=== PATIENT | male | born 1940 | race Caucasian/White ===

== ENCOUNTER 2017-09-14 15:37 | Emergency (ER) | payer MEDICARE ==
--- NOTE | 2017-09-14 16:10 | RAD ---
CHEST PA AND LATERAL: History: 77-year-old male with history of cough and wheezing, worsening. Comparison: 11-09-12 FINDINGS: Left ICD is noted. Atherosclerosis of the aorta with moderate ectasia. Heart size is normal. The lung s are clear. IMPRESSION: No acute intrathoracic disease. Left ICD. Atherosclerosis of the aorta with ectasia. POS: [facility]
[2017-09-14] MEDS ORDERED: predniSONE 20 MG TAB ONE (16:21)
== END 2017-09-14 16:48 | disposition home or self-care (01) ==
LOC: SCSER 15:37
DX: J45.901 Unspecified asthma with (acute) exacerbation (principal); K21.9 Gastro-esophageal reflux disease without esophagitis; F32.9 Major depressive disorder, single episode, unspecified
CPT/HCPCS: 71020; 94640; 94760; J7506; J7620

== ENCOUNTER 2018-09-16 03:54 | Inpatient (IN) | payer OTHER, MEDICARE ==
[2018-09-16 05:13] LABS: ALT (SGPT) 30 U/L (8-55); AST (SGOT) 34 U/L (5-34); Albumin 4.3 g/dL (3.4-4.8); Alkaline Phosphatase 72 U/L (40-150); Anion Gap 17 mmol/L (10-20); BUN (Urea Nitrogen) 23 mg/dL (8.4-25.7); Bilirubin, Total 0.5 mg/dL (0.2-1.2); Calc. Creatinine Clearance 0 mL/min (70-130); Calcium 9.7 mg/dL (7.8-10.44); Carbon Dioxide 24 mmol/L (23-31); Chloride 102 mmol/L (98-107); Estimated GFR-MDRD 86; Glucose 148 mg/dL (83-110); Potassium 4.5 mmol/L (3.5-5.1); Protein, Total 7.3 g/dL (5.8-8.1); Sodium 138 mmol/L (136-145)
[2018-09-16 05:16] LABS: #Basophils 0.1 thou/uL (0.0-0.2); #Eosinphils 0.3 thou/uL (0.0-0.7); #Lymphocytes 1.4 thou/uL (1.20-3.40); #Monocytes 0.8 thou/uL (0.11-0.59); #Neutrophils 5.3 thou/uL (1.40-6.50); %Basophils 1.5 % (0.0-1.0); %Eosinophils 3.8 % (0.0-10.0); %Lymphocytes 18.1 % (21.0-51.0); %Monocytes 9.8 % (0.0-10.0); %Neutrophils 66.8 % (42.0-75.0); Hemoglobin 14.1 g/dL (14.0-18.0); Mean Corpuscular HGB CONC 34.1 g/dL (32.0-36.0); Mean Corpuscular Hemoglobin 31.1 pg (27.0-31.0); Mean Corpuscular Volume 91.4 fL (78.0-98.0); Mean Platelet Volume 8.5 fL (7.4-10.4); PLT Morphology Comment Appears Decreased; Platelet Count 113 thou/uL (130-400); RBC Morphology Normal; Red Blood Cell (RBC) Count 4.54 mill/uL (4.70-6.10)
[2018-09-16] MEDS ORDERED: Furosemide 40 MG/4 ML VIAL ONE (05:39)
[2018-09-16] MEDS ORDERED: Furosemide 20 MG/2 ML VIAL ONE (05:39)
[2018-09-16] MEDS ORDERED: Nitroglycerin 2% Ointment 1 INCH/1 GM Packet ONE (05:39)
[2018-09-16 06:13] LABS: Bilirubin Negative (Negative); Blood, Urine Negative (Negative); Clarity CLEAR (Clear); Glucose, Urine (Dipstick) Negative (Negative); Leukocyte Negative (Negative); Nitrite Negative (Negative); Protein, Urine (Dipstick) Negative (Neg-Trace); Specific Gravity, Urine 1.007 (1.002-1.036)
--- NOTE | 2018-09-16 08:46 | RAD ---
CHEST 1 VIEW: COMPARISON: 11/09/2012. HISTORY: Chest pain and dizziness. FINDINGS: Left-sided transvenous pacemaker has lead position over the region of the right atrium and right vent ricle. Heart is enlarged. There is atherosclerosis and elongation of the aorta. Pulmonary vessels are slightly prominent. Costophrenic angles are clear. No masses or consolidation. No pneumothorax or osseous abnormalities. IMPRESSION: 1. Atherosclerosis. 2. Cardiomegaly with pulmonary vascular prominence. Correlate for volume overload. POS: [facility]
[2018-09-16] MEDS ORDERED: Famotidine 20 MG TAB PO SCH ×2 (09:30→10:00)
--- NOTE | 2018-09-16 10:03 | CT ---
CT OF HEAD NONCONTRAST: Indication: Dizziness. FINDINGS: There is a normal sized ventricular system. Mild white matter hypodensities indicate chronic ischemic disease. No intracranial hemorrhage, mass effect or midline shift. The calvarium is intact. No acute fluid level in the paranasal sinuses. IMPRESSION: No acute intracranial hemorrhage or mass effect. POS: [facility]
[2018-09-16 10:05] LABS: Troponin I Less than 0.010 ng/mL (< 0.028)
--- NOTE | 2018-09-16 11:07 | HP ---
CHIEF COMPLAINTS: Episode of dizziness associated with some double vision and feeling cold and clammy. HISTORY OF PRESENT ILLNESS: The patient is an 78-year-old male, who is admitted to hospital after he developed sudden onset of dizziness with a feeling of being cold and clammy according to his , who was present during this episode. His right eye was deviated to the right and he noticed the double vision. During this happened, he felt hot. Before, he felt cold. His blood pressure was checked by his and it was 179/92. He did not have any headache. He did not have any chest pain. He did not have any shortness of breath. He noticed some wheezing daily in the last several days. 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 Summers. He has daily dry cough. His surrogate decision maker is his , Cindy, and his primary care physician is . He had pacemaker checked recently, approximately 3 to 4 weeks ago and everything came out right. He is back to his baseline and the episode lasted approximately 45 to 60 minutes. He was brought to the emergency room for further evaluation. He did not notice any slow heart beat or fast palpitations during the episode. He noticed increased swelling in his lower extremities, but he admits that they ate in different places and they were not really watching his low-salt diet. He has some peripheral edema on daily basis. PAST MEDICAL HISTORY: 1. Asthma. 2. Hypertension. 3. Sleep apnea. 4. GERD. PAST SURGICAL HISTORY: Tonsillectomy. SOCIAL HISTORY: He never smoked. Does not use any illicit drugs. He does not drink alcohol. FAMILY HISTORY: Father had prostate cancer and he passed at the age of 93, and the mother was 77 when she passed of colon cancer and CVA. MEDICATIONS: Please refer to the list. ALLERGIES: NONE. REVIEW OF SYSTEMS: All 14 systems were reviewed and only positive for those, which are mentioned in the HPI. The rest are negative. PHYSICAL EXAMINATION: GENERAL: He is not in any distress during my visit. He is resting comfortably on the stretcher. VITAL SIGNS: He is afebrile. Pulse is 65. HEENT: His head is atraumatic and normocephalic. Eyes, pupils somewhat dilated, but symmetrical, size is per approximately 4 mm and respond to light properly. Extraocular movements within normal limits, both eyes. Conjunctivae pinkish. Oral mucosa is moist. NECK: Supple. No lymphadenopathy. Thyroid is not palpable. CHEST: Left upper chest, pacemaker is placed. No skin changes over the pacemaker. LUNGS: Clear with just few rales at both bases. HEART: S1 and S2, somewhat distant. No S3. No S4. ABDOMEN: Obese, nontender, nondistended. Bowel sounds are present. No organomegaly. EXTREMITIES: 3+ peripheral edema similar bilaterally on both lower extremities. NEUROLOGICAL: He is alert and oriented x4. There is no any sensory or motor deficits. The exam is nonfocal. His cerebral function shows some dysmetria in the left [id number] testing. The right side is working fine. LABORATORY DATA: Showed white count of 8.7, hemoglobin 14.1, hematocrit 41.5, and platelet count is 113. Chemistry, normal electrolytes. Glucose 148. The rest of chemistry within normal limits. Troponin I is less than 0.010. BNP 18.4. Urinalysis within normal limits. EKG showed dual-chamber pacemaker, 65 beats per minute. Chest x-ray showed heart enlargement with increased vascular pulmonary congestion, fluid overload. IMPRESSION: 1. Most likely basilar transient ischemic attack. 2. Peripheral edema. 3. Volume overload. 4. History of asthma. 5. Thrombocytopenia. 6. Hypertension, uncontrolled. 7. Sleep apnea. PLAN: Full admission. Condition is fair. Activities, bedrest and bathroom privileges. IV Hep-Lock. Diet, heart-healthy diet. Lasix 40 q.12 for diuresis, IV push. Echocardiogram, transthoracic. CT of the brain without contrast. Depends whether this is going to require additional MRI imaging. We will continue his home medications. He received aspirin and Lasix in the emergency room. He put out approximately 2000 mL of urine so far. He is DNAR. Because of his thrombocytopenia, we are him Lovenox or SCDs since he has quite significant peripheral edema. We will have Neurology consulted, and clinically at this point, he is back to his baseline, so is just a matter of diuresing him and getting more testing on his primary problem. Job ID: [id number]
[2018-09-16 11:39] VITALS: BMI 36.5
[2018-09-16 12:09] LABS: INR-International Normal Ratio 1.1; Prothrombin Time 13.9 SEC (12.0-14.7)
[2018-09-16 12:10] LABS: Hemoglobin A1c 6.9 % (4.0-6.0)
--- NOTE | 2018-09-16 12:29 | ULT ---
CAROTID ULTRASOUND WITH EVERETT SCALE AND DOPPLER DUPLEX COLOR FLOW IMAGING SPECTRAL ANALYSIS PERFORMED: CLINICAL INDICATION: TIA. FINDINGS: There is mild scattered atherosclerotic calcification of the carotid arteries. PEAK SYSTOLIC VELOCITY (CM/S): Right CCA 64 Left CCA 72 Right ICA 59 Left ICA 75 There is antegrade flow within the visualized bilateral vertebral arteries. IMPRESSION: 1. No hemodynamically significant stenosis of the right internal carotid artery. 2. No hemodynamically significant stenosis of the left internal carotid artery. POS: [facility]
[2018-09-16] MEDS: Furosemide 40 MG/4 ML VIAL SLOW IVP SCH (14:53)
[2018-09-16] MEDS: Potassium Chloride 20 MEQ TAB PO SCH (17:07)
[2018-09-16] MEDS: Famotidine 20 MG TAB PO SCH (21:52)
[2018-09-16] MEDS ORDERED: Magnesium Oxide 400 MG TAB PO PRN (22:39)
--- NOTE | 2018-09-17 00:11 | CON ---
DATE OF CONSULTATION: 09/16/2018 CONSULTING PHYSICIAN: Hospitalist Services. IMPRESSION: 1. Basilar transient ischemic attack with transient ataxia and double vision. 2. Hypertension. PLAN: 1. Aspirin 81 mg per day. 2. Low-dose statin. 3. Follow up with Cardiology. HISTORY OF PRESENT ILLNESS: Mr. Mojica is an 78-year-old gentleman with a past history of hypertension. He got up at 2 o'clock in the morning and noted that he was seeing double. There was no associated eye pain, nausea, or vertigo. He noted that he was walking in a very unstable manner. His symptoms lasted about an hour and fortunately cleared up. He did not have any nausea, difficulty speaking or swallowing. He has never had anything like this in the past. He had a CT scan of the brain, which showed some small-vessel ischemic changes. His carotid ultrasound did not show any extracranial stenosis. His echocardiogram shows a 50% to 55% ejection fraction. He was thought to be in a degree of heart failure and has been diuresed also. He reports a history of tingling and burning feet, but has not been diagnosed as a diabetic. PAST HISTORY: Hypertension. SOCIAL HISTORY: No tobacco or alcohol use. and lives at home with his . FAMILY HISTORY: Noncontributory. MEDICATIONS: Medication list was reviewed. ALLERGIES: NONE REPORTED. REVIEW OF SYSTEMS: No complaints of headache, chest pain, shortness of breath, abdominal pain, cramps, or diarrhea. PHYSICAL EXAMINATION: GENERAL: He is a large, somewhat overweight elderly gentleman, in no acute distress. VITAL SIGNS: Blood pressure 169/79, pulse 61, respirations 18, and temperature 98.0. HEENT: Pupils are equal and reactive. Conjunctivae clear. Oropharynx clear. NECK: Supple. No lymphadenopathy. EXTREMITIES: Some mild edema, but no cyanosis. NEUROLOGIC: He is alert and appropriate. His speech is fluent and clear. Cranial nerves 2 through 12 are intact. Motor exam shows symmetric strength without fix or drift. Sensation is intact to light touch bilaterally with diminished in the feet. Gait is reasonably steady, but a bit wide-based. No tremor or other abnormal movements were seen. LABORATORY STUDIES: Glucose 148 with the hemoglobin A1c of 6.9. CBC and coags were normal. EKG shows sinus rhythm. SUMMARY: Elderly man with transient neurologic event suggestive of a basilar TIA. I agree with your current management. He may require treatment of his blood sugar as well. He appears to be stable for discharge home. Job ID: [id number]
[2018-09-17 05:06] LABS: Anion Gap 12 mmol/L (10-20); BUN (Urea Nitrogen) 19 mg/dL (8.4-25.7); Calc. Creatinine Clearance 128 mL/min (70-130); Calcium 9.4 mg/dL (7.8-10.44); Carbon Dioxide 32 mmol/L (23-31); Chloride 100 mmol/L (98-107); Estimated GFR-MDRD 90; Glucose 160 mg/dL (83-110); Magnesium 2.2 mg/dL (1.6-2.6); Potassium 4.1 mmol/L (3.5-5.1); Sodium 140 mmol/L (136-145)
[2018-09-17] MEDS: Furosemide 40 MG/4 ML VIAL SLOW IVP SCH ×2 (06:10→13:31)
[2018-09-17] MEDS: Aspirin 81 mg Enteric Coated Tablet PO SCH (09:07)
[2018-09-17] MEDS: Potassium Chloride 20 MEQ TAB PO SCH ×2 (09:07→17:05)
[2018-09-17] MEDS: Famotidine 20 MG TAB PO SCH ×2 (09:07→20:32)
--- NOTE | 2018-09-17 14:14 | PDOC.PN ---
- Subjective Encounter Start Date: 09/17/18 Encounter Start Time: 14:13 Subjective: Notes occasional dyspnea, ongoing swelling bilateral lower extremities, but -: this is generally improving relative to admission - Objective Resuscitation Status - Order Detail: 09/16/18 08:31 Resuscitation Status Routine Resuscitation Status: DNAR: NO Resuscitation Discussed with: discussed with the patient and his Vital Signs & Weight: Vital Signs (12 hours) Temp Pulse Resp BP Pulse Ox 09/17/18 11:23 98.6 F 91 18 137/69 92 L 09/17/18 09:07 91 L 09/17/18 07:52 98.5 F 83 18 141/75 H 91 L 09/17/18 04:00 99.2 F 65 16 155/70 H 92 L Weight Weight 277 lb I&O: 09/16/18 09/17/18 09/18/18 06:59 06:59 06:59 Intake Total 1197 360 Output Total 1910 1400 Balance -263 1040 Result Diagrams: 09/16/18 04:20 09/17/18 04:31 Phys Exam - Physical Examination Speaking in short sentences after ambulating from bathroom to bed HEENT: PERRLA, oral pharynx no lesions Neck: full ROM Occasional wheeze Cardiovascular: RRR Gastrointestinal: soft, non-tender Musculoskeletal: edema present BLE 2plus Neurological: non-focal, moves all 4 limbs Psychiatric: normal affect, A&O x 3 Skin: no rash Dx/Plan (1) TIA involving basilar artery Code(s): G45.0 - VERTEBRO-BASILAR ARTERY SYNDROME Status: Acute Comment: Resolved (2) HTN (hypertension) Code(s): I10 - ESSENTIAL (PRIMARY) HYPERTENSION Status: Acute (3) PAUL (obstructive sleep apnea) Code(s): G47.33 - OBSTRUCTIVE SLEEP APNEA (ADULT) (PEDIATRIC) Status: Acute (4) GERD (gastroesophageal reflux disease) Code(s): K21.9 - GASTRO-ESOPHAGEAL REFLUX DISEASE WITHOUT ESOPHAGITIS Status: Acute (5) Asthma Code(s): J45.909 - UNSPECIFIED ASTHMA, UNCOMPLICATED Status: Acute (6) Diastolic CHF Code(s): I50.30 - UNSPECIFIED DIASTOLIC (CONGESTIVE) HEART FAILURE Status: Acute (7) Peripheral edema Code(s): R60.9 - EDEMA, UNSPECIFIED Status: Acute - Plan cont current plan of care, plan discussed w/ family, out of bed/ambulate * Echo reviewed, suspect diastolic CHF - continue diuresis, check AM lab, apply thigh high EMMANUEL hose * Neuro - ASA, statin * Basilar TIA - no further symptoms * Pacemaker interrogation if possible to rule out intermittant atrial tachyarrhythmias * DVT prophylaxis - lovenox * Endo - follow up HgA1c.
[2018-09-17] MEDS ORDERED: Mag-Al 1200 mg/1200 mg/30 ML UDCUP PO PRN (16:41)
[2018-09-17] MEDS ORDERED: hydrALAZINE 20 MG/ML VIAL SLOW IVP PRN (21:57)
[2018-09-18 05:23] LABS: #Basophils 0.1 thou/uL (0.0-0.2); #Eosinphils 0.3 thou/uL (0.0-0.7); #Lymphocytes 1.4 thou/uL (1.20-3.40); #Monocytes 0.8 thou/uL (0.11-0.59); #Neutrophils 4.6 thou/uL (1.40-6.50); %Eosinophils 3.8 % (0.0-10.0); %Lymphocytes 19.9 % (21.0-51.0); %Monocytes 11.4 % (0.0-10.0); %Neutrophils 63.9 % (42.0-75.0); Hemoglobin 13.7 g/dL (14.0-18.0); Mean Corpuscular HGB CONC 33.9 g/dL (32.0-36.0); Mean Corpuscular Hemoglobin 30.9 pg (27.0-31.0); Mean Corpuscular Volume 91.4 fL (78.0-98.0); Mean Platelet Volume 8.1 fL (7.4-10.4); Platelet Count 142 thou/uL (130-400); RBC Distribution Width 12.9 % (11.5-14.5); Red Blood Cell (RBC) Count 4.44 mill/uL (4.70-6.10); White Blood Cell (WBC) Count 7.2 thou/uL (4.8-10.8)
[2018-09-18] MEDS: Furosemide 40 MG/4 ML VIAL SLOW IVP SCH ×2 (05:24→14:12)
[2018-09-18 05:37] LABS: Anion Gap 14 mmol/L (10-20); BUN (Urea Nitrogen) 17 mg/dL (8.4-25.7); Calc. Creatinine Clearance 141 mL/min (70-130); Calcium 9.4 mg/dL (7.8-10.44); Carbon Dioxide 27 mmol/L (23-31); Chloride 101 mmol/L (98-107); Estimated GFR-MDRD Greater than 90; Glucose 149 mg/dL (83-110); Magnesium 2.3 mg/dL (1.6-2.6); Potassium 3.8 mmol/L (3.5-5.1); Sodium 138 mmol/L (136-145)
[2018-09-18] MEDS ORDERED: Enoxaparin Sodium 40 MG/0.4 ML SYRINGE SC SCH (09:00)
[2018-09-18] MEDS: Aspirin 81 mg Enteric Coated Tablet PO SCH (09:28)
[2018-09-18] MEDS: Potassium Chloride 20 MEQ TAB PO SCH (09:28)
[2018-09-18] MEDS: Famotidine 20 MG TAB PO SCH (09:28)
[2018-09-18 11:49] VITALS: BP 161/82; TEMP 98.1
--- NOTE | 2018-09-18 16:58 | EKG ---
Test Reason : Blood Pressure : / mmHG Vent. Rate : 065 BPM Atrial Rate : 065 BPM P-R Int : 118 ms QRS Dur : 186 ms QT Int : 472 ms P-R-T Axes : 000 -74 097 degrees QTc Int : 490 ms AV sequential or dual chamber electronic pacemaker Confirmed by HALEY FERRARO ([id number]), supervising editor trailer EMILIANA JOHNSON ([id number]) on 09/18/2018 4:58:12 PM Referred By: Confirmed By:HALEY FERRARO
--- NOTE | 2018-09-19 11:09 | DIS ---
DATE OF ADMISSION: 09/16/2018 DATE OF DISCHARGE: 09/18/2018 PRIMARY CARE PHYSICIAN: Guanakito Martinez MD ELECTROPLATING WORKER: Romain Maurer MD CHIEF COMPLAINT/REASON FOR ADMISSION: Episode of dizziness associated with double vision, as well as feeling cold and clammy. Additional complaint noted increasing lower extremity edema. ADMISSION DIAGNOSIS: Transient ischemic attack, likely involving the basilar artery. DISCHARGE DIAGNOSES: 1. Transient ischemic attack, involving basilar artery, resolved. 2. Volume overloads as peripheral edema, possibly secondary to nonsteroidal anti-inflammatory medication. 3. Diastolic congestive heart failure, decompensated. 4. History of reactive airway disease/asthma, presently with upper respiratory symptoms. 5. Hypertension, suboptimally controlled. 6. Obstructive sleep apnea, on home CPAP. 7. Gastroesophageal reflux disease. 8. Prediabetes, with goal of dietary intervention/weight loss. STUDIES/PROCEDURES: 2D echocardiogram on 09/16/2018, ejection fraction 55%. Normal size left atrium. Mild concentric left ventricular hypertrophy. Left ventricular size is normal, aortic valve leaflet somewhat thickened, mild tricuspid regurgitation. Pacer wire visualized in the right ventricle. No thrombus noted in the visualized cardiac chamber. Carotid Doppler studies on 09/16/2018. No hemodynamically significant stenosis, left or right internal carotid artery. CT of brain, noncontrast, no acute intracranial hemorrhage or mass effect. CONSULTS DURING HOSPITAL STAY: Neurology, Ricky Malave MD, with recommendation for aspirin 81 mg per day, low-dose statin, outpatient Cardiology followup. HOSPITAL COURSE: Mr. Mojica is an 78-year-old gentleman with medical history of essential hypertension, reactive airway disease/asthma, obstructive sleep apnea, gastroesophageal reflux disease, presenting to the hospital after developing sudden onset of dizziness with a feeling of being cold and clammy. He had noted double vision. Blood pressure noted at home was elevated. No significant headache or chest discomfort. Recent pacemaker check in the Cardiology office showed no abnormalities. Approximately 45 to 60 minutes following onset of symptoms, symptoms had resolved. Additionally, he endorsed worsening edema in the lower extremities, dietary indiscretion with higher salt intake. Neurologically, started on aspirin and statin regimen. Previous intolerance to statin, we will pursue a trial of pravastatin. From a neurologic standpoint, clear for transition to home. From a Cardiology standpoint, found to have an evidence of diastolic congestive heart failure, though preserved ejection fraction. He has been using nonsteroidal medications at home for his arthritis. We discussed discontinuation of Naproxen, as a possible contributor to lower extremity edema. He was diuresed with IV Lasix, with interval improvement, both in pedal edema and with exertional dyspnea. He will be maintained on the diuretic regimen at home with Lasix 40 mg p.o. once daily. Additionally, the patient's family requested transition away from losartan due to the recent recall of this medication, to a different drug on the same cost. I have provided a prescription for valsartan 160 mg p.o. daily. Additionally, I have provided a prescription for potassium supplementation 20 mEq p.o. once daily, due to initiation of Lasix. I provided a prescription for basic metabolic panel on 09/23/2018 to follow up his potassium as well his blood sugar. Hemoglobin A1c was drawn as well during hospitalization. This was found to be 6.9%. Dietary intervention/weight loss recommended. Diabetes medication was not initiated during the hospital stay, but would encourage the patient to continue to follow up as on outpatient as this may need to be revised once his acute medical illness has cleared. He is also endorsed upper respiratory infection during this time frame. His lung castillo are clear on exam, and chest x-ray was negative for evidence of infiltrate or effusion. EMMANUEL hose was applied also assisted with control of lower extremity edema and increase the patient's comfort. He will continue this practise at home. He had been taking the nonsteroidal medications due to pain in his feet. We discussed upper titration of Cymbalta as an alternative route for a long-term pain control. He requested a [facility] 90 mg [facility] He wanted to finish up his current prescription at 60 mg prior to titration. We also discussed cessation of nonsteroidal medications. If pain is severe, he is able to use his home tramadol on an intermittent basis. He demonstrated understanding. PHYSICAL EXAMINATION: GENERAL: On day of discharge, he is awake and alert. He is oriented to person, place, and time. HEENT: Eyes are without conjunctival injection. No scleral icterus. Oropharynx is clear without erythema or exudate. NECK: Supple with full range of motion. HEART: Regular rate and rhythm without distinct murmur, rub, or gallop. LUNGS: Clear bilaterally. ABDOMEN: Soft and nontender. EXTREMITIES: He has edema present bilaterally, 1+, improved from my exam yesterday. Medications discussed with him and his , questions answered. DIET: No added sugar/no added salt, heart healthy. ACTIVITY: As tolerated, ambulation encouraged. FOLLOWUP APPOINTMENTS: Lab draw; basic metabolic panel on 09/23/2018 was requested to send to Dr. Martinez. Follow up with Dr. Martinez on 09/24/2018 at 9:45 a.m. Follow up with Dr. Maurer on 10/05/2018 at 2:45 p.m. MEDICATIONS: New medications included: 1. Lasix 40 mg p.o. once daily. 2. Potassium chloride 20 mEq p.o. daily. 3. Pravastatin 40 mg p.o. at bedtime. 4. Valsartan 160 mg p.o. daily. Medications discontinued: 1. Naproxen. 2. Losartan. Medications to continue: 1. Aspirin 81 mg p.o. daily. 2. Albuterol (Proventil HFA) 1 puff q.4 hours p.r.n. shortness of breath. 3. Carvedilol 6.25 mg p.o. b.i.d. 4. Duloxetine 60 mg p.o. daily. 5. Nexium 20 mg p.o. daily. 6. Fluticasone 50 mcg nasally daily. 7. Loratadine 10 mg p.o. daily. 8. Tramadol 50 mg p.o. once daily p.r.n. breakthrough pain. CONDITION ON DISCHARGE: Improved. DISCHARGE TIME: 55 minutes including time spent with the patient and family in the room explaining his revised drug regimen. Job ID: [id number]
== END 2018-09-18 14:55 | disposition home or self-care (01) | DRG 69 ==
LOC: ERS 03:54 → 2SE 05:28
PROVIDERS: ADMIT Internal Medicine; ATTEND Internal Medicine
DX: G45.9 Transient cerebral ischemic attack, unspecified (principal); I50.33 Acute on chronic diastolic (congestive) heart failure; J45.909 Unspecified asthma, uncomplicated; K21.9 Gastro-esophageal reflux disease without esophagitis; D69.6 Thrombocytopenia, unspecified; Z66 Do not resuscitate; J06.9 Acute upper respiratory infection, unspecified; T39.395A Adverse effect of other nonsteroidal anti-inflammatory drugs [NSAID], initial encounter; M19.90 Unspecified osteoarthritis, unspecified site; I11.0 Hypertensive heart disease with heart failure; R73.03 Prediabetes; Z95.0 Presence of cardiac pacemaker; G47.33 Obstructive sleep apnea (adult) (pediatric); Z90.89 Acquired absence of other organs
CPT/HCPCS: 36415; 70450; 71045; 80048; 80053; 81003; 82550; 83036; 83090; 83735; 83880; 84484; 85025; 85610; 85652; 86880; 93005; 93306; 93798; 93880; 94760; 96374; J0360; J1650; J1940; J7620

== ENCOUNTER 2019-11-27 13:04 | Inpatient (IN) | payer OTHER, MEDICARE ==
[2019-11-27] MEDS ORDERED: Ondansetron PF 4 MG/2 ML Vial ONE (13:45)
[2019-11-27 14:11] LABS: Hemoglobin 12.3 g/dL (14.0-18.0); Mean Corpuscular Hemoglobin 32.2 pg (27.0-31.0); Mean Corpuscular Volume 92.1 fL (78.0-98.0); Mean Platelet Volume 7.9 fL (7.4-10.4); Platelet Count 105 thou/uL (130-400); Red Blood Cell (RBC) Count 3.83 mill/uL (4.70-6.10); White Blood Cell (WBC) Count 4.8 thou/uL (4.8-10.8)
[2019-11-27 14:24] LABS: Band 36 % (5-11); Eosinophils 1 % (0-10); Lymphocytes 17 % (21-51); MDiff Complete? YES; Metamyelocyte 1 % (0-0); Monocytes 18 % (0-10); Neutrophil 23 % (42-75); Platelet Morphology Comment Appears Decreased; Polychromasia SLIGHT = 2-3 cells (100X) (0-2/hpf); Reactive Lymphocytes 3 % (0-10)
--- NOTE | 2019-11-27 14:28 | RAD ---
PORTABLE CHEST 1 VIEW: Date: 11/27/2019 Time: 1314 hours HISTORY: Shortness of breath with exertion and bilateral lower extremity swelling. COMPARISON: 09/16/2018. FINDINGS: The heart size is borderline. A left-sided pacemaker device remains in place. The lungs are expanded without lobar consolidation, pneumothoraces, rimma pulmonary edema, or pleural effusions. IMPRESSION: No acute process. POS: [facility]
[2019-11-27 14:31] LABS: ALT (SGPT) 14 U/L (8-55); AST (SGOT) 20 U/L (5-34); Albumin 3.8 g/dL (3.4-4.8); Alkaline Phosphatase 49 U/L (40-110); Anion Gap 12 mmol/L (10-20); BUN (Urea Nitrogen) 34 mg/dL (8.4-25.7); CK (CPK) 271 U/L (30-200); Calc. Creatinine Clearance 0 mL/min (70-130); Calcium 8.5 mg/dL (7.8-10.44); Carbon Dioxide 24 mmol/L (23-31); Chloride 103 mmol/L (98-107); Estimated GFR-MDRD 52; Globulin 2.5 g/dL (2.4-3.5); Glucose 146 mg/dL (83-110); Lipase Less than 4 U/L (8-78); Potassium 3.6 mmol/L (3.5-5.1); Protein, Total 6.3 g/dL (5.8-8.1); Sodium 135 mmol/L (136-145)
[2019-11-27 14:52] LABS: CKMB 2.1 ng/mL (0-6.6)
[2019-11-27] MEDS ORDERED: Aspirin Chewable 81 MG TAB ONE (15:37)
[2019-11-27] MEDS ORDERED: Loperamide HCl 2 MG CAP PO PRN (16:20)
[2019-11-27] MEDS ORDERED: HYDROcodone/Acetaminophen 5/325 mg Tablet PO PRN (16:20)
[2019-11-27] MEDS ORDERED: Ondansetron ODT 4 MG TAB PO PRN (16:20)
[2019-11-27] MEDS ORDERED: Zolpidem Tartrate 5 MG TAB PO PRN (16:20)
[2019-11-27 17:13] LABS: Troponin I 0.028 ng/mL (< 0.028)
[2019-11-27 17:23] LABS: Thyroid Stimulating Hormone 1.5943 uIU/mL (0.35-4.94)
--- NOTE | 2019-11-27 17:23 | HP ---
PRIMARY CARE PROVIDER: Guanakito Martinez MD HISTORY OF PRESENT ILLNESS: The patient referred to the Hospitalist Service by [facility] for diarrhea, abnormal troponin. The patient went out to eat 72 hours ago, got sick with abdominal bloating and diarrhea within hours. His had similar symptoms after eating basically the same food, has resolved fairly rapidly. He still having diarrhea every 1 to 2 hours, watery. No blood in his stools. No black tarry stools. He notes bloating of his abdomen, but no abdominal pain. He says he is passing gas both directions. He has had some minimal nausea without emesis. He states he has had very poor intake for 72 hours and his weight is up 3 pounds in the past 24 hours. PAST MEDICAL HISTORY: Pertinent for hypertension, dyslipidemia, diastolic heart failure diagnosed in 2017. He had a TIA in the past, which resolved. He has obstructive sleep apnea and peripheral neuropathy in his feet. CURRENT MEDICATIONS: 1. Combivent Respimat inhaler once or twice a day. 2. Losartan 100 mg p.o. daily. 3. Coreg 12.5 mg p.o. b.i.d. 4. Duloxetine 60 mg once a day. 5. Lasix 40 mg a day. 6. Pravastatin 80 mg once a day. 7. Vascepa 1 g two times a day. 8. Aspirin 81 mg a day. 9. Potassium 20 mEq a day. 10. Omeprazole 40 mg a day. 11. Super B complex 100 one a day. 12. Imodium 2 mg, unknown dosage. ALLERGIES: NO KNOWN DRUG ALLERGIES. PAST SURGICAL HISTORY: Pertinent for tonsillectomy as a child. He has had a pacemaker placed. FAMILY HISTORY: Mother is with colon cancer. Father of prostate cancer at 94 years old. SOCIAL HISTORY: . at bedside. Full code status reviewed with him and his . No tobacco. He drinks maybe one alcoholic beverage every 1 to 2 months. No illicit drugs. REVIEW OF SYSTEMS: GENERAL: No fainting. No headache. Some dizziness with present illness. He has occasional orthostatic dizziness arising, he states especially after he takes his blood pressure medicines in the morning. EYES: No double vision, blurred vision, or flashing lights. EAR, NOSE, AND THROAT: No ear pain or drainage. No nasal bleeding. No trouble swallowing. CARDIAC: No chest pain, shortness of breath, or orthopnea. RESPIRATIONS: Obstructive sleep apnea. Some occasional wheezing. Uses Combivent Respimat. GASTROINTESTINAL: See present illness. GENITOURINARY: Nocturia x2. No blood in his urine. No pain on urination. MUSCULOSKELETAL: Swelling in both legs. NEUROLOGIC: No strokes, seizures, or focal weakness. He has had a TIA in the past that resolved. PSYCHIATRIC: No anxiety or depression, on his duloxetine. SKIN: Easy bruising. No rash. HEME/LYMPH: No tender or swollen lymph nodes in the axilla, inguinal, or cervical areas. PHYSICAL EXAMINATION: GENERAL: He is alert, pleasant, cooperative gentleman. VITAL SIGNS: Blood pressure has ranged from 106/51 to 91/50, pulse is 60, respirations are 17 to 20, room air sat is 100, temperature 98.6 and 98.8. HEAD, EYES, EARS, NOSE, AND THROAT: Pupils are equal, round, and reactive to light. Extraocular movements are intact. Sclerae are white. Tympanic membranes clear. Nose clear. Oral mucous membranes are wet. Dental hygiene is good. NECK: Supple without jugular venous distention, adenopathy, or thyromegaly. CHEST: Clear to auscultation and percussion. HEART: Regular rate and rhythm. First and second heart sounds are clear. There are no murmurs. No gallops. ABDOMEN: Soft. Bowel sounds are diminished. Has some distention to his abdomen, but no tenderness. EXTREMITIES: Reveal 1 to 2+ edema with no cyanosis or clubbing. PULSES: Carotid, radial, femoral and dorsalis pedis pulses palpable and symmetric. SKIN: Warm and dry without bruises or rash. He does have some ecchymoses on his hands consistent with senile changes and aspirin. HEME/LYMPH: No tender or swollen lymph nodes in the axilla, inguinal, or cervical area. DIAGNOSTIC DATA: EKG, paced rhythm, reviewed by me. EKG, no cardiomegaly, CHF , or infiltrate reviewed by me. LABORATORY DATA: Sodium 135, potassium 3.6, chloride 103, CO2 of 24, BUN 34, creatinine 1.33, blood sugar 146. CK is 271, CK-MB is 2.1, troponin 0.05. BNP 106. CBC; white count 4.8, hemoglobin 12.3, platelet count of 105,000, neutrophils 23, bands 36%, 1 metamyelocyte. ASSESSMENT: Diarrhea, hypotension, acute kidney injury, history of heart failure, hypertension, dyslipidemia, obstructive sleep apnea. Initially, this patient appeared to be simple. However, in review of his study, his normal blood pressure being 130/80 is down to 90/60. Distention of his abdomen, marked left shift on CBC, evidence of acute kidney injury. Elevated troponin. History of congestive heart failure lead me to a decision to place this patient in IMCU, change from observation to full admit as I do not believe this patient can adequately be evaluated and treated in one overnight. I will be obtaining stool studies, starting IV fluids. Echocardiogram will be obtained. Serial enzymes will be done. Stool cultures will be done. I will hold off on antibiotics at this point. Job ID: [id number] [id number]
[2019-11-27 17:24] LABS: T4 5.7 ug/dL (4.87-11.72)
[2019-11-27 19:19] VITALS: BMI 34.0
[2019-11-27 20:33] LABS: Troponin I 0.037 ng/mL (< 0.028)
[2019-11-27] MEDS: Carvedilol 6.25 MG TAB PO SCH (20:50)
[2019-11-27] MEDS: Atorvastatin Calcium 20 MG TAB PO SCH (20:50)
[2019-11-28 04:21] LABS: Anion Gap 11 mmol/L (10-20); BUN (Urea Nitrogen) 32 mg/dL (8.4-25.7); Calc. Creatinine Clearance 97 mL/min (70-130); Calcium 8.1 mg/dL (7.8-10.44); Carbon Dioxide 23 mmol/L (23-31); Chloride 106 mmol/L (98-107); Estimated GFR-MDRD 75; Glucose 135 mg/dL (83-110); Potassium 3.3 mmol/L (3.5-5.1); Sodium 137 mmol/L (136-145)
[2019-11-28 04:23] LABS: Band 40 % (5-11); Hemoglobin 11.3 g/dL (14.0-18.0); Hypochromia SLIGHT = 6-15 cells (100X) (0-5/hpf); Lymphocytes 22 % (21-51); MDiff Complete? YES; Mean Corpuscular HGB CONC 35.3 g/dL (32.0-36.0); Mean Corpuscular Hemoglobin 32.6 pg (27.0-31.0); Mean Corpuscular Volume 92.4 fL (78.0-98.0); Mean Platelet Volume 8.7 fL (7.4-10.4); Metamyelocyte 2 % (0-0); Monocytes 16 % (0-10); Neutrophil 20 % (42-75); Platelet Count 98 thou/uL (130-400); Platelet Morphology Comment Appears Decreased; Red Blood Cell (RBC) Count 3.46 mill/uL (4.70-6.10); White Blood Cell (WBC) Count 4.9 thou/uL (4.8-10.8)
[2019-11-28] MEDS: Aspirin 81 mg Enteric Coated Tablet PO SCH (09:20)
[2019-11-28] MEDS: Carvedilol 6.25 MG TAB PO SCH ×2 (09:21→20:29)
[2019-11-28] MEDS: Azithromycin 500 MG in Sodium Chloride 0.9% 250 ML 250 ML IVPB SCH (09:21)
[2019-11-28] MEDS: DULoxetine 60 MG CAP PO SCH (09:22)
[2019-11-28] MEDS: Enoxaparin Sodium 40 MG/0.4 ML SYRINGE SC SCH (09:23)
[2019-11-28] MEDS: Losartan 25 MG TAB PO SCH (09:24)
--- NOTE | 2019-11-28 11:17 | PDOC.HOSPP ---
- Subjective Encounter Date: 11/28/19 Encounter Time: 11:16 Subjective: Mr. Mojica was seen today in follow-up of Diarrhea and hypotension. He continues to have some loose stools. He denies abdominal pain. - Objective Vital Signs & Weight: Vital Signs (12 hours) Temp Resp BP Pulse Ox 11/28/19 09:21 108/54 L 11/28/19 07:50 99 11/28/19 07:15 97.7 F 11/28/19 06:50 14 100 11/28/19 03:32 99.8 F H 11/28/19 01:00 100.3 F H 11/27/19 23:21 101.6 F H Weight Weight 251 lb Most Recent Monitor Data Heart Rate from ECG 60 NIBP 108/54 NIBP BP-Mean 72 Respiration from ECG 20 SpO2 100 I&O: 11/27/19 11/28/19 11/29/19 06:59 06:59 06:59 Intake Total 600 16 Balance 600 16 Result Diagrams: 11/28/19 03:18 11/28/19 03:18 Hospitalist ROS - Medication Medications: Active Medications Generic Name Dose Route Start Last Admin Trade Name Freq PRN Reason Stop Dose Admin Hydrocodone Bitart/Acetaminophen 1 tab 11/27/19 16:20 11/27/19 23:21 [place] 5/325 PO 1 tab Q4H PRN Administration Moderate Pain (4-6) Aspirin 81 mg 11/28/19 09:00 11/28/19 09:20 Ecotrin PO 81 mg DAILY LENNIE Administration Atorvastatin Calcium 20 mg 11/27/19 21:00 11/27/19 20:50 Lipitor PO 20 mg HS LENNIE Administration Carvedilol 6.25 mg 11/27/19 21:00 11/28/19 09:21 Coreg PO 6.25 mg BID LENNIE Administration Duloxetine HCl 60 mg 11/28/19 09:00 11/28/19 09:22 Cymbalta PO 60 mg DAILY LENNIE Administration Enoxaparin Sodium 40 mg 11/28/19 09:00 11/28/19 09:23 Lovenox SC Not Given 0900 LENNIE Azithromycin 500 mg/ Sodium 250 mls @ 250 mls/hr 11/28/19 09:00 11/28/19 09: 21 Chloride IVPB 250 mls Q24HR LENNIE Administration Losartan Potassium 100 mg 11/28/19 09:00 11/28/19 09:24 Cozaar PO Not Given DAILY LENNIE Sodium Chloride 10 ml 11/28/19 09:00 11/28/19 09:24 Flush - Normal Saline IVF 10 ml Q12HR LENINE Administration - Exam Eye: PERRL, anicteric sclera Heart: RRR, no rubs, normal peripheral pulses, murmur present, II/IV Respiratory: CTAB, no wheezes, no rales, no ronchi, normal chest expansion, no tachypnea, normal percussion Gastrointestinal: soft, normal bowel sounds, distended (+ mild distension, good bowel sounds) Hosp A/P (1) Campylobacter diarrhea Code(s): A04.5 - CAMPYLOBACTER ENTERITIS Status: Acute (2) Diarrhea Code(s): R19.7 - DIARRHEA, UNSPECIFIED Status: Acute (3) Diastolic CHF Code(s): I50.30 - UNSPECIFIED DIASTOLIC (CONGESTIVE) HEART FAILURE Status: Chronic (4) GERD (gastroesophageal reflux disease) Code(s): K21.9 - GASTRO-ESOPHAGEAL REFLUX DISEASE WITHOUT ESOPHAGITIS Status: Chronic (5) HTN (hypertension) Code(s): I10 - ESSENTIAL (PRIMARY) HYPERTENSION Status: Chronic (6) PAUL (obstructive sleep apnea) Code(s): G47.33 - OBSTRUCTIVE SLEEP APNEA (ADULT) (PEDIATRIC) Status: Chronic (7) Acute kidney injury Code(s): N17.9 - ACUTE KIDNEY FAILURE, UNSPECIFIED Status: Acute - Plan * Diarrhea- due to Campylobacter- will start Azithromycin * Hypokalemia- continue to monitor electrolytes, and replace as needed * HTN- blood pressure is a bit on the lower side, will continue to hold Losartan * Chronic diastolic heart failure- compensated * Acute kidney injury-resolved
[2019-11-28] MEDS ORDERED: Potassium Chloride 20 MEQ TAB PO SCH (11:30)
[2019-11-28] MEDS: Atorvastatin Calcium 20 MG TAB PO SCH (20:28)
[2019-11-29 03:39] LABS: Anion Gap 13 mmol/L (10-20); BUN (Urea Nitrogen) 26 mg/dL (8.4-25.7); Calc. Creatinine Clearance 124 mL/min (70-130); Calcium 8.3 mg/dL (7.8-10.44); Carbon Dioxide 20 mmol/L (23-31); Chloride 106 mmol/L (98-107); Estimated GFR-MDRD Greater than 90; Glucose 138 mg/dL (83-110); Potassium 3.7 mmol/L (3.5-5.1); Sodium 135 mmol/L (136-145)
[2019-11-29] MEDS: Carvedilol 6.25 MG TAB PO SCH ×2 (08:30→20:24)
[2019-11-29] MEDS: Aspirin 81 mg Enteric Coated Tablet PO SCH (08:30)
[2019-11-29] MEDS: DULoxetine 60 MG CAP PO SCH (08:30)
[2019-11-29] MEDS: Azithromycin 500 MG in Sodium Chloride 0.9% 250 ML 250 ML IVPB SCH (08:36)
[2019-11-29] MEDS: Enoxaparin Sodium 40 MG/0.4 ML SYRINGE SC SCH (10:34)
[2019-11-29] MEDS: Losartan 25 MG TAB PO SCH (10:35)
--- NOTE | 2019-11-29 10:37 | PDOC.HOSPP ---
- Subjective Encounter Date: 11/29/19 Encounter Time: 10:35 Subjective: Mr. Mojica was seen today in follow-up of Campylobacter diarrhea. He says his stools are beginning to firm up, and the volume is smaller. He denies abdominal pain, and denies chest pain or dyspnea. - Objective Vital Signs & Weight: Vital Signs (12 hours) Temp BP Pulse Ox 11/29/19 08:30 122/55 L 11/29/19 08:00 98 11/29/19 07:31 98.5 F 11/29/19 03:35 98.6 F 11/28/19 23:38 98.3 F Weight Admit Weight 251 lb Weight 251 lb Most Recent Monitor Data Heart Rate from ECG 60 NIBP 122/55 NIBP BP-Mean 77 Respiration from ECG 18 SpO2 100 I&O: 11/28/19 11/29/19 11/30/19 06:59 06:59 06:59 Intake Total 600 784 Balance 600 784 Result Diagrams: 11/28/19 03:18 11/29/19 03:05 Hospitalist ROS - Medication Medications: Active Medications Generic Name Dose Route Start Last Admin Trade Name Freq PRN Reason Stop Dose Admin Hydrocodone Bitart/Acetaminophen 1 tab 11/27/19 16:20 11/27/19 23:21 [place] 5/325 PO 1 tab Q4H PRN Administration Moderate Pain (4-6) Albuterol/Ipratropium 3 ml 11/27/19 16:55 11/28/19 22:31 Duoneb NEB 3 ml Q6H PRN Administration SOB &/or Wheezing Aspirin 81 mg 11/28/19 09:00 11/29/19 08:30 Ecotrin PO 81 mg DAILY LENNIE Administration Atorvastatin Calcium 20 mg 11/27/19 21:00 11/28/19 20:28 Lipitor PO 20 mg HS LENNIE Administration Carvedilol 6.25 mg 11/27/19 21:00 11/29/19 08:30 Coreg PO 6.25 mg BID LENNIE Administration Duloxetine HCl 60 mg 11/28/19 09:00 11/29/19 08:30 Cymbalta PO 60 mg DAILY LENNIE Administration Enoxaparin Sodium 40 mg 11/28/19 09:00 11/29/19 10:34 Lovenox SC Not Given 09 LENNIE Azithromycin 500 mg/ Sodium 250 mls @ 250 mls/hr 11/28/19 09:00 11/29/19 08: 36 Chloride IVPB 250 mls Q24HR LENNIE Administration Losartan Potassium 100 mg 11/28/19 09:00 11/28/19 09:24 Cozaar PO Not Given DAILY LENNIE Sodium Chloride 10 ml 11/28/19 09:00 11/28/19 20:28 Flush - Normal Saline IVF 10 ml Q12HR LENNIE Administration - Exam Eye: PERRL Heart: RRR, no rubs, normal peripheral pulses, murmur present, II/IV Respiratory: CTAB, no wheezes, no rales, no ronchi, normal chest expansion, no tachypnea, normal percussion Gastrointestinal: soft (+ mildly distended and tympanic to percussion), normal bowel sounds, no hepatomegaly, no splenomegaly Extremities: no cyanosis, no clubbing, 1+ LE edema Hosp A/P (1) Campylobacter diarrhea Code(s): A04.5 - CAMPYLOBACTER ENTERITIS Status: Acute (2) Diarrhea Code(s): R19.7 - DIARRHEA, UNSPECIFIED Status: Acute (3) Diastolic CHF Code(s): I50.30 - UNSPECIFIED DIASTOLIC (CONGESTIVE) HEART FAILURE Status: Chronic (4) GERD (gastroesophageal reflux disease) Code(s): K21.9 - GASTRO-ESOPHAGEAL REFLUX DISEASE WITHOUT ESOPHAGITIS Status: Chronic (5) HTN (hypertension) Code(s): I10 - ESSENTIAL (PRIMARY) HYPERTENSION Status: Chronic (6) PAUL (obstructive sleep apnea) Code(s): G47.33 - OBSTRUCTIVE SLEEP APNEA (ADULT) (PEDIATRIC) Status: Chronic (7) Acute kidney injury Code(s): N17.9 - ACUTE KIDNEY FAILURE, UNSPECIFIED Status: Acute - Plan * Diarrhea- due to Campylobacter- beginning to improve- continue Azithromycin * Hypokalemia-better today- continue to monitor * HTN- blood pressure is beginning to recover- will continue to hold Losartan * Chronic diastolic heart failure- compensated * Acute kidney injury-resolved * Hopefully home tomorrow
[2019-11-29] MEDS: Atorvastatin Calcium 20 MG TAB PO SCH (20:24)
[2019-11-30 03:55] LABS: Anion Gap 11 mmol/L (10-20); BUN (Urea Nitrogen) 15 mg/dL (8.4-25.7); Calc. Creatinine Clearance 153 mL/min (70-130); Calcium 8.6 mg/dL (7.8-10.44); Carbon Dioxide 25 mmol/L (23-31); Chloride 106 mmol/L (98-107); Estimated GFR-MDRD Greater than 90; Glucose 110 mg/dL (83-110); Sodium 138 mmol/L (136-145)
[2019-11-30 04:05] VITALS: TEMP 98.3
[2019-11-30] MEDS: Aspirin 81 mg Enteric Coated Tablet PO SCH (08:24)
[2019-11-30] MEDS: Carvedilol 6.25 MG TAB PO SCH (08:24)
[2019-11-30] MEDS: DULoxetine 60 MG CAP PO SCH (08:24)
[2019-11-30] MEDS: Losartan 25 MG TAB PO SCH (08:24)
[2019-11-30] MEDS: Enoxaparin Sodium 40 MG/0.4 ML SYRINGE SC SCH (08:27)
[2019-11-30] MEDS: Azithromycin 500 MG in Sodium Chloride 0.9% 250 ML 250 ML IVPB SCH (08:27)
[2019-11-30 08:28] VITALS: BP 143/69
--- NOTE | 2019-11-30 08:45 | PDOC.HOSPP ---
- Subjective Encounter Date: 11/30/19 Encounter Time: 08:43 Subjective: Mr. Mojica was seen today in follow-up of campylobacter diarrhea. He says his stools have firmed up, and he has not had a bowel movement this morning. No new complaints. - Objective Vital Signs & Weight: Vital Signs (12 hours) Temp BP Pulse Ox 11/30/19 08:24 143/69 H 11/30/19 04:00 98.3 F 11/29/19 23:43 97.7 F 100 Weight Admit Weight 251 lb Weight 251 lb Most Recent Monitor Data Heart Rate from ECG 60 NIBP 143/69 NIBP BP-Mean 93 Respiration from ECG 23 SpO2 98 I&O: 11/29/19 11/30/19 12/01/19 06:59 06:59 06:59 Intake Total 784 610 Balance 784 610 Result Diagrams: 11/28/19 03:18 11/30/19 03:14 Hospitalist ROS - Medication Medications: Active Medications Generic Name Dose Route Start Last Admin Trade Name Freq PRN Reason Stop Dose Admin Hydrocodone Bitart/Acetaminophen 1 tab 11/27/19 16:20 11/27/19 23:21 [place] 5/325 PO 1 tab Q4H PRN Administration Moderate Pain (4-6) Albuterol/Ipratropium 3 ml 11/27/19 16:55 11/28/19 22:31 Duoneb NEB 3 ml Q6H PRN Administration SOB &/or Wheezing Aspirin 81 mg 11/28/19 09:00 11/30/19 08:24 Ecotrin PO 81 mg DAILY LENNIE Administration Atorvastatin Calcium 20 mg 11/27/19 21:00 11/29/19 20:24 Lipitor PO 20 mg HS LENNIE Administration Carvedilol 6.25 mg 11/27/19 21:00 11/30/19 08:24 Coreg PO 6.25 mg BID LENNIE Administration Duloxetine HCl 60 mg 11/28/19 09:00 11/30/19 08:24 Cymbalta PO 60 mg DAILY LENNIE Administration Enoxaparin Sodium 40 mg 11/28/19 09:00 11/30/19 08:27 Lovenox SC 40 mg 0900 LENNIE Administration Azithromycin 500 mg/ Sodium 250 mls @ 250 mls/hr 11/28/19 09:00 11/30/19 08: 27 Chloride IVPB 250 mls Q24HR LENNIE Administration Losartan Potassium 100 mg 11/28/19 09:00 11/30/19 08:24 Cozaar PO 100 mg DAILY LENNIE Administration Sodium Chloride 10 ml 11/28/19 09:00 11/29/19 20:25 Flush - Normal Saline IVF 10 ml Q12HR LENNIE Administration - Exam Eye: PERRL Heart: RRR, no murmur, no gallops, no rubs, normal peripheral pulses Respiratory: CTAB, no wheezes, no rales, no ronchi, normal chest expansion, no tachypnea, normal percussion Gastrointestinal: soft, non-tender, non-distended, normal bowel sounds, no palpable masses, no hepatomegaly Extremities: no cyanosis, no clubbing, no edema Hosp A/P (1) Campylobacter diarrhea Code(s): A04.5 - CAMPYLOBACTER ENTERITIS Status: Acute (2) Diarrhea Code(s): R19.7 - DIARRHEA, UNSPECIFIED Status: Acute (3) Diastolic CHF Code(s): I50.30 - UNSPECIFIED DIASTOLIC (CONGESTIVE) HEART FAILURE Status: Chronic (4) GERD (gastroesophageal reflux disease) Code(s): K21.9 - GASTRO-ESOPHAGEAL REFLUX DISEASE WITHOUT ESOPHAGITIS Status: Chronic (5) HTN (hypertension) Code(s): I10 - ESSENTIAL (PRIMARY) HYPERTENSION Status: Chronic (6) PAUL (obstructive sleep apnea) Code(s): G47.33 - OBSTRUCTIVE SLEEP APNEA (ADULT) (PEDIATRIC) Status: Chronic (7) Acute kidney injury Code(s): N17.9 - ACUTE KIDNEY FAILURE, UNSPECIFIED Status: Acute - Plan * Diarrhea- due to Campylobacter- improved * Hypokalemia-resolved * Stable for discharge home today
--- NOTE | 2019-11-30 09:53 | DIS ---
DATE OF ADMISSION: 11/27/2019 DATE OF DISCHARGE: 11/30/2019 PRIMARY CARE PHYSICIAN: Guanakito Martinez MD. DISCHARGE DISPOSITION: Home. DISCHARGE DIAGNOSES: 1. Acute Campylobacter diarrhea. 2. Acute kidney injury secondary to acute Campylobacter diarrhea, resolved. 3. Chronic diastolic heart failure. 4. Hypertension. 5. Dyslipidemia. 6. Obstructive sleep apnea. 7. Peripheral neuropathy. DISCHARGE MEDICATIONS: Include; 1. Azithromycin 250 mg p.o. daily for 2 more days. 2. Lasix 40 mg daily. 3. Potassium chloride 20 mEq daily. 4. Aspirin 81 mg daily. 5. CoQ10 of 200 mg twice a day. 6. Pravastatin 80 mg at bedtime. 7. Omeprazole 40 mg daily. 8. daily. 9. Losartan 100 mg daily. 10. Loratadine 10 mg daily. 11. Imodium 2 mg as directed. 12. Vascepa 1 g twice a day. 13. Folic acid, vitamin B and C complex daily. 14. Flonase nasal spray daily. 15. Cymbalta 60 mg daily. 16. Carvedilol 12.5 mg twice a day. 17. ProAir inhaler q.6 as needed. CODE STATUS: Full code. ALLERGIES: NO KNOWN DRUG ALLERGIES. IMAGING DONE DURING HOSPITAL STAY: The patient had an echocardiogram, this demonstrated an ejection fraction of 55% to 60%. There was some impaired diastolic relaxation compatible with diastolic dysfunction. HOSPITAL COURSE: Mr. Mojica is a very pleasant 79-year-old gentleman, who was admitted to the hospital after he was having severe abdominal bloating and diarrhea. He was also feeling extremely weak. When he was evaluated in the ER, stool studies were obtained and he was admitted to the hospital. He was hypotensive and found to be in acute kidney injury. He was hydrated and stool studies were obtained. The results of which demonstrated a positive Campylobacter antigen. He was started on azithromycin and improved over the course of the next couple of days. His blood pressure recovered. The stools began to become more formed and less volume and was able to be discharged home on 11/30/2019 to follow up with his primary care physician in 1 week. Job ID: [id number]
== END 2019-11-30 11:02 | disposition home or self-care (01) | DRG 372 ==
LOC: ERS 13:04 → IMCU/EMU 15:55
PROVIDERS: ADMIT Internal Medicine; ATTEND Internal Medicine
DX: A04.5 Campylobacter enteritis (principal); N17.9 Acute kidney failure, unspecified; I50.32 Chronic diastolic (congestive) heart failure; E78.5 Hyperlipidemia, unspecified; G47.33 Obstructive sleep apnea (adult) (pediatric); G62.9 Polyneuropathy, unspecified; I95.9 Hypotension, unspecified; E87.6 Hypokalemia; E78.00 Pure hypercholesterolemia, unspecified; K21.9 Gastro-esophageal reflux disease without esophagitis; Z79.82 Long term (current) use of aspirin; Z79.899 Other long term (current) drug therapy; Z79.51 Long term (current) use of inhaled steroids; Z86.73 Personal history of transient ischemic attack (TIA), and cerebral infarction without residual deficits; Z95.0 Presence of cardiac pacemaker; Z99.89 Dependence on other enabling machines and devices
CPT/HCPCS: 36415; 71045; 80048; 80053; 82274; 82550; 82553; 83605; 83630; 83690; 83880; 84436; 84443; 84479; 84484; 85025; 87040; 87045; 87046; 87324; 87427; 87449; 93005; 93306; 94640; 94760; 96361; 96372; 96374; J0456; J0500; J1650; J2405; J7050; J7620

== ENCOUNTER 2024-10-12 12:26 | Outpatient (CLI) | payer MEDICARE, OTHER | END 2024-10-12 12:27 | disposition home or self-care (01) | LOC: RAD 12:26 | PROVIDERS: ATTEND Physical Medicine & Rehabilitation | DX: E11.40 Type 2 diabetes mellitus with diabetic neuropathy, unspecified (principal); M51.26 Other intervertebral disc displacement, lumbar region; M48.061 Spinal stenosis, lumbar region without neurogenic claudication; M48.07 Spinal stenosis, lumbosacral region | CPT/HCPCS: 71046; 72148 ==